=== PATIENT | female | born 1990 ===

== ENCOUNTER 2025-07-02 12:15 | Inpatient (IN) | payer OTHER ==
[~2025-07-02] VITALS: Ht 154.9 cm; Wt 46.3 kg
[2025-07-02] MEDS ORDERED: LEVSIN0.125 MG PO (14:38)
[2025-07-02] MEDS ORDERED: HYFIBER WI PO (14:40)
[2025-07-08] MEDS ORDERED: METRONIDAZOLE/SODIUM CHLORIDE 500 MG/100 ML PIGGYBACK IV SCH (09:15)
[2025-07-08] MEDS ORDERED: CEFTRIAXONE SODIUM 2,000 MG VIAL IV SCH (09:15)
[2025-07-08] MEDS ORDERED: LIDOCAINE HCL 1%/EPINEPHRINE 20ML VIAL IJ ONE (09:15)
[2025-07-08] MEDS ORDERED: BUPIVACAINE HCL 30 ML VIAL IJ ONE (09:15)
[2025-07-08] MEDS ORDERED: SUGAMMADEX SODIUM 200 MG/2 ML VIAL IV ONE (09:30)
[2025-07-08] MEDS ORDERED: OxyCODONE HCL 5 MG TABLET (ROXICODONE) PO PRN (09:45)
[2025-07-08] MEDS ORDERED: RINGERS SOLUTION,LACTATED 1,000 ML IV SCH (09:45)
[2025-07-08] MEDS ORDERED: MORPHINE SULFATE 4 MG/ML CARTRIDGE IV PRN (09:45)
[2025-07-08] MEDS ORDERED: ONDANSETRON HCL 2 MG/ML VIAL IV PRN (09:45)
[2025-07-08 12:20] VITALS: BP 135/86; O2SAT 100
[2025-07-08 12:50] LABS: BASO % 0.3 % (0.1-1.2); EOS # 0.01 (0.04-0.54); EOS % 0.1 % (0.7-7.0); LYMPH # 2.00 (1.18-3.74); LYMPH % 11.5 % (19.3-53.1); MEAN PLATELET VOLUME 9.90 fl (9.4-12.4); MONO # 0.67 (0.24-0.82); MONO % 3.9 % (4.7-12.5); NEUT # 14.56 (1.56-6.13); NEUT % 83.9 % (34.0-71.1); RED CELL DISTRIBUTION WIDTH 12.3 % (11.6-14.4)
[2025-07-08] MEDS ORDERED: SIMETHICONE 125 MG CAPSULE PO SCH (13:00)
[2025-07-08] MEDS ORDERED: HYOSCYAMINE SULFATE 0.125 MG TAB.SUBL SL SCH (13:00)
[2025-07-08] MEDS ORDERED: ACETAMINOPHEN 500 MG GEL..CAP PO SCH (14:00)
[2025-07-08 16:00] VITALS: BP 144/83; O2SAT 100
[2025-07-08] MEDS ORDERED: METOCLOPRAMIDE HCL 5 MG/ML VIAL IV SCH (17:00)
[2025-07-08] MEDS ORDERED: GABAPENTIN 300 MG CAPSULE PO SCH (17:00)
[2025-07-08] MEDS ORDERED: CELECOXIB 200 MG CAPSULE PO SCH (21:00)
[2025-07-08] MEDS ORDERED: FAMOTIDINE/PF 20 MG/2 ML VIAL IV PUSH SCH (21:00)
[2025-07-09 01:53] VITALS: BP 131/73; O2SAT 98
[2025-07-09 06:57] LABS: BASO % 0.3 % (0.1-1.2); EOS # 0.00 (0.04-0.54); EOS % 0.0 % (0.7-7.0); LYMPH # 1.79 (1.18-3.74); LYMPH % 9.8 % (19.3-53.1); MEAN PLATELET VOLUME 10.00 fl (9.4-12.4); MONO # 1.06 (0.24-0.82); MONO % 5.8 % (4.7-12.5); NEUT # 15.24 (1.56-6.13); NEUT % 83.8 % (34.0-71.1); RED CELL DISTRIBUTION WIDTH 12.2 % (11.6-14.4)
[2025-07-09 08:00] VITALS: BP 109/75; O2SAT 98
[2025-07-09 08:32] LABS: BUN CREA RATIO 10.0 (7.0-25.0); CREATININE SERUM 0.72 mg/dL (0.55-1.02); GFR 92.72; GLUCOSE FASTING 107.0 mg/dL (65-100); OSMOLALITY SERUM 280.0 MOSM/KG (275-295)
[2025-07-09] MEDS ORDERED: LACTOBACILLUS ACIDOPHILUS 1 CAP CAP PO SCH (09:00)
[2025-07-09 16:00] VITALS: BP 110/78; O2SAT 98
[2025-07-09] MEDS ORDERED: ENOXAPARIN SODIUM 40 MG/0.4 ML SYRINGE SUBCUTANEO SCH (17:00)
[2025-07-10 00:52] VITALS: BP 102/63; O2SAT 96
[2025-07-10 07:13] LABS: BASO % 0.4 % (0.1-1.2); EOS # 0.08 (0.04-0.54); EOS % 0.6 % (0.7-7.0); LYMPH # 2.75 (1.18-3.74); LYMPH % 21.5 % (19.3-53.1); MEAN PLATELET VOLUME 10.80 fl (9.4-12.4); MONO # 0.75 (0.24-0.82); MONO % 5.9 % (4.7-12.5); NEUT # 9.09 (1.56-6.13); NEUT % 71.2 % (34.0-71.1); RED CELL DISTRIBUTION WIDTH 12.4 % (11.6-14.4)
[2025-07-10 07:29] LABS: BUN CREA RATIO 14.0 (7.0-25.0); CREATININE SERUM 0.66 mg/dL (0.55-1.02); GFR 102.52; GLUCOSE FASTING 79.0 mg/dL (65-100); OSMOLALITY SERUM 283.0 MOSM/KG (275-295)
[2025-07-10] MEDS ORDERED: ENOXAPARIN SODIUM 40 MG/0.4 ML SYRINGE SUBCUTANEO SCH (09:00)
[2025-07-10] MEDS ORDERED: POTASSIUM PHOS,M-BASIC-D-BASIC 15 MM in 0.9 % SODIUM CHLORIDE 250 ML IV NR (10:15)
[2025-07-10 10:17] VITALS: BP 121/76; O2SAT 98
[2025-07-10 16:00] VITALS: BP 124/71; O2SAT 99
[2025-07-11 02:03] VITALS: BP 95/64; O2SAT 100
[2025-07-11] MEDS ORDERED: CELECOXIB200 MG PO (07:57)
[2025-07-11] MEDS ORDERED: MIRALAX17 GM PO (07:57)
[2025-07-11] MEDS ORDERED: INTESTINEX680 M1 PO (07:57)
[2025-07-11 08:00] VITALS: BP 111/74; O2SAT 97
== END 2025-07-11 10:52 | disposition home or self-care (01) | DRG 334 ==
LOC: SURH 07-08 05:30 → O/R 07-08 05:30 → SURH 07-08 07:00
PROVIDERS: Internal Medicine Geriatric Medicine; ADMIT Surgery; ATTEND Surgery
PROC: 0DJD8ZZ Inspection of Lower Intestinal Tract, Via Natural or Artificial Opening Endoscopic (ICD-10-PCS; 2025-07-08)
PROC: 0DTP4ZZ Resection of Rectum, Percutaneous Endoscopic Approach (ICD-10-PCS; principal; 2025-07-08 07:00)
DX: K58.1 Irritable bowel syndrome with constipation (principal); K56.41 Fecal impaction; K63.4 Enteroptosis